=== PATIENT | male | born 1990 | race Caucasian/White ===

== ENCOUNTER 2017-02-17 10:03 | Emergency (ER) | payer OTHER ==
[~2017-02-17 10:03] MED LIST: ARTANE2 MG PO; ASPIR-LOW81 M1 PO; ASPIRIN81 M1 PO; ASPIRIN81 M2 PO; ATARAX,VISTARIL25 MG PO; Aspirin Ec PO; CLARITIN10 M3 PO; CLEOCIN150 MG PO; COLACE100 MG PO; DEPAKOTE ER500 MG PO; DESYREL12.5 MG PO; DIVALPROEX SOD500 M1 PO; DIVALPROEX SOD500 MG PO; FLUOXETINE HCL20 MG PO; FOLIC ACID1 MG PO; HYDROXYZINE PAM50 MG PO; LITHIUM CARBON300 M2 PO; LITHIUM CARBON300 MG PO; LITHOBID300 MG PO; MELATONIN3 MG PO; METOPROLOL SUCC25 MG PO; MOTRIN800 MG PO; NICOTINE PATCH1 EAC2 TD; NICOTINE PATCH1 EAC3 TD; PROAIR HFA8.5 GM IH; PROMETHAZINE HC25 M1 PO; PROZAC20 MG PO; QUETIAPINE FUM200 MG PO; QUETIAPINE FUM300 MG PO; QUETIAPINE FUM400 MG PO; RISPERDAL3 MG PO; RISPERDAL4 MG PO; RISPERDAL50 MG/2 ML IM; RISPERIDONE2 MG PO; RISPERIDONE3 MG PO; SELFEMRA20 MG PO; SEROQUEL12.5 MG PO; SEROQUEL300 MG PO; SEROQUEL400 MG PO; SSD20 GM TP; THORAZINE25 MG PO; THORAZINE50 MG PO; TOPROL XL6.25 MG PO; TRAZODONE HCL50 MG PO; TRIHEXYPHENIDYL2 MG PO; TYLENOL REGULA325 MG PO; VITAMIN D1000 INTUN PO; VITAMIN D1000 UNIT PO; VITAMIN D3400 UNIT PO; ZITHROMAX Z-PA250 MG PO; [UNRECOGNIZED DRUG - OTHER] TP; lithium
[2017-02-17 10:29] LABS: EOSINOPHIL (%) 0.3 % (0-5); IMMATURE GRANULOCYTE (%) 0.5 % (0.0-0.7); IMMATURE GRANULOCYTE COUNT 0.1 K/uL; INSTRUMENT ABS NEUTROPHIL CT 7.2 K/uL; LYMPHOCYTE COUNT 1.4 K/uL (1.0-2.8); MCH 31.2 PG (29.0-34.0); MCHC 34.4 G/DL (30.0-36.0); MCV 90.7 FL (86-99); MEAN PLAT.VOLUME 11.5 uM^3 (9.0-12.4); MONOCYTE (%) 6.7 % (3-12); MONOCYTE COUNT 0.6 K/uL (0-0.8); NEUTROPHIL (%) 77.3 % (45-76); NEUTROPHIL COUNT 7.2 K/uL (1.8-6.4); PLATELET COUNT 223 K/uL (156-360); RBC DIS.WIDTH-CV 12.2 % (11.8-14.6); RBC DIS.WIDTH-SD 40.8 % (39-53); RED BLOOD COUNT 4.74 M/uL (4.00-5.50); WHITE BLOOD COUNT 9.4 K/uL (4.1-10.2)
[2017-02-17 10:38] LABS: AMYLASE 53 IU/L (1-118); CHLORIDE 107 mEq/L (99-109); POTASSIUM 4.4 mEq/L (3.7-5.4); SODIUM 140 mEq/L (136-147)
[2017-02-17 10:40] LABS: GLUCOSE 89 mg/dL (70-99)
[2017-02-17 10:41] LABS: ANION GAP 11 MEQ/L (2-14)
[2017-02-17 10:43] LABS: SERUM ETHYL ALCOHOL < 10 mg/dL
[2017-02-17 10:44] LABS: GFR ESTIMATE (CALCULATED) > 59 mL/min/
[2017-02-17 10:45] LABS: UREA NITROGEN (BUN) 15 mg/dL (9-23)
[2017-02-17 10:47] LABS: LIPASE 24 U/L (1.0-51.0)
[2017-02-17 12:54] LABS: ADD MIUA? NO; BILIRUBIN NEGATIVE; BLOOD NEGATIVE; COLOR STRAW ((YELLOW)); GLUCOSE (STRIP) NEGATIVE; KETONES NEGATIVE; LEUKOCYTES NEGATIVE; NITRITE NEGATIVE; PROTEIN (STRIP) NEGATIVE; UCUL ADDED? NO; UROBILINOGEN 0.2 MG/DL (0.2-1.0)
[2017-02-17 13:12] LABS: AMPHETAMINE NEGATIVE (500 ng/mL); BARBITURATES NEGATIVE (200 ng/mL); BENZODIAZEPINES NEGATIVE (150 ng/mL); COCAINE NEGATIVE (150 ng/mL); INTERNAL CONTROLS VALID? YES; METHADONE NEGATIVE (200 ng/mL); METHAMPHETAMINE NEGATIVE (500 ng/mL); OPIATES (MORPHINE) NEGATIVE (100 ng/mL); OXYCODONE NEGATIVE (100 ng/mL); PHENCYCLIDINE NEGATIVE (25 ng/mL); PROPOXYPHENE NEGATIVE (300 ng/mL); THC CANNABINOIDS NEGATIVE (50 ng/mL); TRICYCLIC ANTIDEPRESSANTS NEGATIVE (300 ng/mL)
== END 2017-02-17 12:24 ==
LOC: TRA 10:03
PROVIDERS: Emergency Medicine
DX: F32.9 Major depressive disorder, single episode, unspecified (principal); T14.91 Suicide attempt; F19.10 Other psychoactive substance abuse, uncomplicated; X83.8XXA Intentional self-harm by other specified means, initial encounter; Y92.143 Cell of prison as the place of occurrence of the external cause
CPT/HCPCS: 70498; 72126; 80048; 81003; 82150; 83690; 85025; 86900; 86901; 93005; 99281; 99285; G0480; J2405